=== PATIENT | female | born 1930 | race Caucasian/White ===

== ENCOUNTER → 2016-12-13 | Outpatient (CLI) | payer MEDICARE, OTHER ==
[~2016-12-13] MED LIST: AC325T PO; ATOR10TA PO; FLUT100D INH; LVT.05T PO; LVT.088T PO; MECL12.579 PO; METO10TA3; MOEX1TAB; MOEX1TAB6 PO; RT-COMBINH INH; SENN8.6T80; SULF1TAB35 PO; SULF1TAB7 PO; VITAMIN D; [UNRECOGNIZED DRUG - OTHER]; flovent; levothyroxine; lipitor
--- OUTSIDE RECORDS SUMMARY | 2016-12-13 09:16 | XMS REPORT | Continuity of Care Document ---
Author Author [facility] Organization [facility] Address Unknown Phone Unavailable Care Team Providers Care Special Needs Teacher Name Role Phone No Pcp, Na PCP Unavailable Source Comments Some departments are not documenting in the electronic medical record. If you do not see the information that you expected, contact Release of Information in the Health Information Management department at [phone] for further assistance in locating additional records.[facility] Active Allergies and Adverse Reactions Allergen Noted Date Severity Reactions Comments Anti-Hist 01/31/2016 Medium HIVES Codeine 01/31/2016 Medium HIVES, RASH Doxycycline 01/31/2016 Medium HIVES Pcn 01/31/2016 Medium HIVES, RASH Phenergan 01/31/2016 Medium HIVES Current Medications Prescription Sig. Disp. Refills Start End Date Status Date moexipril-hydrochlorothia Take 0.5 Tabs by mouth Active zide (UNIRETIC) 15-25 mg daily. tablet levothyroxine (SYNTHROID) Take 75 mcg by mouth Active 75 mcg tablet daily. atorvastatin (LIPITOR) 10 Take 10 mg by mouth at Active mg tablet bedtime daily. fluticasone (FLOVENT HFA) Inhale 1 Puff by mouth Active 110 mcg/actuation inhaler twice daily. ipratropium/albuterol Inhale 1 Puff by mouth Active (COMBIVENT RESPIMAT) four times daily as 20-100 mcg/actuation needed for Wheezing. inhaler cholecalciferol (vitamin Take 1 Cap by mouth Active D3) 4,000 unit cap daily. HYDROcodone/acetaminophen Take 1 Tab by mouth every 60 Tab 0 02/27/20 Active (NORCO) 5-325 mg tablet 4 hours as needed for 16 Pain Earliest Fill Date: 02/27/16 Active Problems Problem Noted Date Dupuytren contracture 02/27/2016 Trigger finger, right little finger 02/05/2016 Social History Tobacco Use Types Packs/Day Years Used Date Never Smoker Smokeless Tobacco: Never Used Tobacco Cessation: Counseling Given: Yes Comments: Alcohol Use Drinks/Week oz/Week Comments Yes 0 Standard 0.0 on occassion drinks or equivalent Last Filed Vital Signs Vital Sign Reading Time Taken Blood Pressure 147/89 06/14/2016 11:46 AM CDT Pulse 80 06/14/2016 11:46 AM CDT Temperature 36.4 C (97.5 F) 02/27/2016 4:48 PM CDT Respiratory Rate - - Height 1.524 m (5') 06/14/2016 11:46 AM CDT Weight 69.854 kg (154 lb) 06/14/2016 11:46 AM CDT Body Mass Index 30.08 06/14/2016 11:46 AM CDT Oxygen Saturation 96% 02/27/2016 6:00 PM CDT Plan of Care Health Maintenance Due Date Last Done Comments Physical (Comprehensive) 01/04/1935 Exam Pertussis Vaccine 01/04/1939 Tetanus Vaccine 01/04/1945 Shingles Vaccine 1988 Osteoporosis Screening 01/04/1993 Prevnar/Pneumovax (#1) 01/04/1993 Influenza Vaccine 05/30/2016 Results from Last 3 Months Not on file
--- NOTE | 2016-12-13 10:26 | Diagnostic Imaging Report ---
EXAM: PA and lateral views of the chest. COMPARISON with 11/26/2009 exam. FINDINGS: There is a left infrahilar oval nodule measuring 1.3 cm not seen on the previous exam. The right lung appears clear. The heart size is normal. No effusion or pneumothorax. The mediastinum and miles appear unremarkable. IMPRESSION: There is a 1.3 cm infrahilar left lung nodule. Further evaluation with CT scan of the chest is recommended. Report given to Shari in the office of RAMONA Mcadams, 12/13/2016 at 10:19 a.m./supa Dictated by: Dictated on workstation # [id number]
== END ==
LOC: RAD 09:11
PROVIDERS: ATTEND Nurse Practitioner Family
DX: R04.2 Hemoptysis (principal); R91.1 Solitary pulmonary nodule
CPT/HCPCS: 71020

== ENCOUNTER → 2016-12-18 | Outpatient (CLI) | payer MEDICARE, OTHER ==
[~2016-12-18] MED LIST changes: +CATHETER FLUSH 10 ML SYR IV PRN; +IOHEXOL 350 MG/ML 100 ML (OMNIPAQUE 350) VIAL IV ONE; +NS 100 ML (IVPB) BAG IV ONE
--- NOTE | 2016-12-18 14:18 | Diagnostic Imaging Report ---
PROCEDURE: CT chest with contrast only. TECHNIQUE: Multiple contiguous axial images were obtained through the chest after administration of intravenous contrast. INDICATION: Left lung mass. Hemoptysis. Evaluate lung nodule seen on chest x-ray. FINDINGS: There is a 1.3 cm nodule in the superior segment of the left lower lobe. Mild atelectasis is seen along the inferior aspect of the left major fissure. There is minimal scarring in the left lung base, slightly more prominent compared to 06/05/2012, and minimal superimposed atelectasis. No significant consolidation or mass. The thoracic aorta is normal in caliber measuring up to 3.4 cm. The pulmonary artery is slightly prominent which could correlate with pulmonary hypertension. There is a nonspecific 1 cm right hilar lymph node. No significantly enlarged left hilar or mediastinal lymph nodes are seen. No axillary lymphadenopathy is noted. Sections in the upper abdomen demonstrate no adrenal nodules. The osseous structures demonstrate degenerative changes. IMPRESSION: There is a concerning 1.3 cm nodule in the superior segment of the left lower lobe. There is an indeterminate borderline sized right hilar lymph node. Early lung cancer is not excluded. Evaluation with PET/CT is recommended. Dictated by: Dictated on workstation # [id number]
== END ==
LOC: RAD 11:10
PROVIDERS: ATTEND Nurse Practitioner Family
DX: R04.2 Hemoptysis (principal); R91.8 Other nonspecific abnormal finding of lung field
CPT/HCPCS: 71260

== ENCOUNTER → 2016-12-31 | Outpatient (CLI) | payer MEDICARE, OTHER ==
[~2016-12-31] MED LIST changes: -CATHETER FLUSH 10 ML SYR IV PRN; -IOHEXOL 350 MG/ML 100 ML (OMNIPAQUE 350) VIAL IV ONE; -NS 100 ML (IVPB) BAG IV ONE
--- NOTE | 2016-12-31 19:35 | Diagnostic Imaging Report ---
PET/CT. Lung cancer, initial. INDICATION: Bladder cancer, abnormal CT chest exam. EXAMINATION: After intravenous administration of 14.7 mCi of [id number], a series of overlapping emission and transmission PET images was obtained. In the coronal, transaxial and sagittal planes, the area imaged extended from the skull base through the upper thighs. COMPARISON: There are no previous PET/CT examinations available for comparison. FINDINGS: The PA and lateral chest exam performed on 12/13/2016 noted a 1.3 cm nodule in the left infrahilar region. This nodule had developed in the interval since the previous chest exam of 11/26/2009. The subsequent CT chest exam performed on 12/23/2016 also identified the nodule. The nodule has smooth margin but there were no central calcifications. On this study, the nodule is again visualized on the CT images of this exam. There is no hypermetabolic activity associated with this finding to suggest that it is a malignant process. Even so, I would recommend that a short-term (three-month) followup CT chest exam be obtained for further evaluation. There is no other hypermetabolic activity seen to suggest the presence of neoplasm. In particular, there is no hilar or mediastinal uptake to suggest neoplastic adenopathy. 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 That finding is again evident and does not appear to have changed significantly. There is also extensive diverticulosis of the sigmoid colon without evidence for acute diverticulitis. This finding seems stable when compared to the prior exam as well. There is no acute abnormality identified. IMPRESSION: 1. The nodule in the superior segment of the left lobe seen on the recent CT chest exam is not hypermetabolic. Consequently, it is unlikely to be related to malignant process. Even so, a short-term (three-month) followup CT chest exam would be recommended. 2. There is no other hypermetabolic activity to suggest the presence of neoplasm. 3. The splenic artery aneurysm and the extensive diverticulosis of the sigmoid and descending colon noted previously are again evident and no different. Dictated by: Dictated on workstation # [id number]
== END ==
LOC: RAD 09:30
PROVIDERS: ATTEND Family Medicine
DX: R91.1 Solitary pulmonary nodule (principal); K57.32 Diverticulitis of large intestine without perforation or abscess without bleeding; I72.8 Aneurysm of other specified arteries

== ENCOUNTER → 2017-04-02 | Outpatient (CLI) | payer MEDICARE, OTHER ==
--- NOTE | 2017-04-02 14:07 | Diagnostic Imaging Report ---
PROCEDURE: CT chest without contrast. TECHNIQUE: Multiple contiguous axial images were obtained through the chest without the use of intravenous contrast. INDICATION: Followup pulmonary nodule. COMPARISON: 12/18/2016. FINDINGS: Evaluation of the pulmonary parenchyma again demonstrates pulmonary nodule within the superior segment of the left lower lobe. On today's exam, it measures approximately 11 mm in diameter. This has not significantly changed compared to 12-13 mm on the prior study. Small subpleural micronodule is also seen within the posterior margins of the right lower lobe and measures approximately 3-4 mm in diameter. This is stable as well (image 36, series 2 compared to image 38, series 2). No new pulmonary nodules or masses are seen. There is no new focal consolidation, pleural effusion, nor pneumothorax. Cardiomediastinal structures show stable heart size. Note is again made of at least moderate calcified coronary atherosclerosis. There is also scattered mild aortic atherosclerosis. Main pulmonary arterial trunk measures 3.2 cm in diameter. There is no large pericardial effusion. Previously described right perihilar lymph node is not well visualized on this exam secondary to lack of IV contrast. Borderline prominent precarinal lymph node, however, measures 10-11 mm. This is stable compared to 10-11 mm previously (image 25, series 2 compared to image 26, series 2). No abnormal axillary adenopathy is seen. Bony structures show age-related degenerative changes of the thoracic spine. No acute abnormalities are seen. No lytic or blastic lesions are identified. Included portions of the upper abdomen are unremarkable. IMPRESSION: 1. Stable pulmonary nodule in the left lower lobe as described above. Continued short interval three-month followup is recommended. 2. Stable borderline mediastinal lymph node. 3. Stable small micronodule within the posterior right lower lobe. 4. Dilatation of the main pulmonary arterial trunk. This can be seen with underlying pulmonary arterial hypertension. Dictated by: Dictated on workstation # [id number]
== END ==
LOC: RAD 12:37
PROVIDERS: ATTEND Family Medicine
DX: R91.8 Other nonspecific abnormal finding of lung field (principal); I99.8 Other disorder of circulatory system
CPT/HCPCS: 71250

== ENCOUNTER → 2017-07-24 | Outpatient (CLI) | payer MEDICARE, OTHER ==
--- NOTE | 2017-07-24 13:06 | Diagnostic Imaging Report ---
PROCEDURE: CT chest without contrast. TECHNIQUE: Multiple contiguous axial images were obtained through the chest without the use of intravenous contrast. INDICATION: Followup lung nodule. COMPARISON: 04/02/2017. FINDINGS: 1.2-cm lobulated nodule in the superior segment of the left lower lobe is seen and is similar to previous exams including 12/18/2016. There is another nodule in the left lower lobe, axial image 36 measuring 4 mm. It is uncertain if this is a new nodule or not well seen on the previous exams. There is evidence of scarring in the inferior lingula. In the right lung no significant consolidation, mass, or suspicious nodule is seen. Mild atelectasis or scarring is seen in the medial aspect of the right lower lobe, however. The heart size is normal. No pericardial or pleural effusion. There are atherosclerotic calcifications seen in the coronary arteries. The thoracic aorta is normal in caliber. There is no mediastinal or axillary lymphadenopathy. 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 This is stable from prior exams. The osseous structures appear grossly unremarkable. IMPRESSION: 1. Stable 1.2-cm nodule in the superior segment of the left lower lobe without change from 12/18/2016. This was not significantly hypermetabolic on prior PET favoring benign etiology. Another followup in six/nine months is recommended to ensure further stability. 2. Another nonspecific 4-mm nodule is seen in the left lower lobe. Dictated by: Dictated on workstation # [id number]
== END ==
LOC: RAD 08:54
PROVIDERS: ATTEND Family Medicine
DX: R91.8 Other nonspecific abnormal finding of lung field (principal)
CPT/HCPCS: 71250